=== PATIENT | female | born 1965 | race Caucasian/White ===

== ENCOUNTER 2017-04-17 17:21 | Observation (INO) | payer OTHER ==
[~2017-04-17] VITALS: Ht 160 cm; Wt 118.0 kg
[~2017-04-17 17:21] MED LIST: CETI10TA10 PO; FLUT0.15 NAE; HYOS1TAB PO; INSU3INJ3 SQ; IPRA1AER2 INH; IPRASOL4 INH; LOSA1TAB38 PO; OMEP40CA41 PO; PLN25 PO
[2017-04-17] MEDS ORDERED: SODIUM CHLORIDE 0.9% 1000ML 1,000 ML IV STA (17:55)
[2017-04-17] MEDS ORDERED: ASPIRIN 81 MG CHEW PO STA (17:55)
[2017-04-17] MEDS ORDERED: GLCSR/500 PO (17:56)
[2017-04-17] MEDS ORDERED: INSU1INJ41 SQ (17:56)
[2017-04-17] MEDS ORDERED: NITROGLYCERIN 0.4 MG SL PER TAB CHARGE SL PRN ×2 (18:00→22:45)
--- NOTE | 2017-04-17 18:26 | DIAGNOSTIC IMAGING REPORT ---
CHEST ONE VIEW PORTABLE CLINICAL HISTORY: Chest pain. COMPARISON STUDY: Chest radiograph May 24, 2016. FINDINGS: Lung volumes are normal. No pneumothorax or pleural effusion is present. There is no consolidation to suggest pneumonia. Cardiac size is normal. There is no evidence of pulmonary edema. IMPRESSION: No acute cardiopulmonary findings. Electronically signed by: Brent Higgins M.D. 04/17/2017 6:25 PM Dictated Date/Time: 04/17/2017 6:24 PM
[2017-04-17 18:50] LABS: BASO % 0.4 %; BASO ABS # 0.04 K/uL (0-0.2); COMPLETE YES; HEMATOCRIT 39.5 % (37-47); IG% 0.5 %; LYMPH % 37.7 %; LYMPH ABS # 4.13 K/uL (1.2-3.4); MEAN CELL VOLUME 88.2 fL (80-100); MEAN CORPUSCULAR HEMOGLOBIN 30.1 pg (25-34); MEAN CORPUSCULAR HGB CONC 34.2 g/dl (32-36); MEAN PLATELET VOLUME 9.4 fL (7.4-10.4); MONO % 6.1 %; NEUT % 51.3 %; PLATELET COUNT 362 K/uL (130-400); RED BLOOD COUNT 4.48 M/uL (4.2-5.4); WHITE BLOOD COUNT 10.96 K/uL (4.8-10.8)
[2017-04-17 19:29] LABS: ALKALINE PHOSPHATASE 114 U/L (45-117); ALT/SGPT 48 U/L (12-78); BLOOD UREA NITROGEN 14 mg/dl (7-18); CALCIUM 9.3 mg/dl (8.5-10.1); CARBON DIOXIDE 26 mmol/L (21-32); CHLORIDE 108 mmol/L (98-107); CREATININE 0.85 mg/dl (0.60-1.20); GLUCOSE 102 mg/dl (70-99); SODIUM 139 mmol/L (136-145)
[2017-04-17] MEDS ORDERED: NITROGLYCERIN OINT 2% 1GM PACKET EXT ONE (20:30)
[2017-04-17] MEDS ORDERED: HYDROmorphone INJ 0.5 MG/0.5 ML SYR IV ONE (21:12)
[2017-04-17] MEDS ORDERED: ONDANSETRON INJ 2 MG/ML 2 ML VIAL IV PRN (21:15)
[2017-04-17] MEDS ORDERED: TRAMADOL HCL 50 MG TAB PO PRN (21:15)
[2017-04-17] MEDS ORDERED: HYDROmorphone INJ 0.5 MG/0.5 ML SYR IV PRN (21:15)
[2017-04-17] MEDS: SODIUM CHLORIDE 0.9% 1000ML 1,000 ML IV SCH (22:41)
[2017-04-17] MEDS ORDERED: ACETAMINOPHEN 325 MG TAB PO PRN (22:45)
[2017-04-17] MEDS ORDERED: GLUCOSE 10 TABS/TUBE PO PRN (22:45)
[2017-04-17] MEDS ORDERED: GLUCOSE 40% GEL 15 GM TUBE PO PRN (22:45)
[2017-04-17] MEDS ORDERED: IV FLUIDS COMPLETED PRN (22:45)
[2017-04-17] MEDS ORDERED: DEXTROSE 50% 50 ML SYR IV PRN (22:45)
[2017-04-17] MEDS ORDERED: GLUCAGON FOR INJ 1 MG VIAL SQ PRN (22:45)
[2017-04-17] MEDS ORDERED: LORAZEPAM 2 MG/ML 1 ML VIAL IV PRN (22:45)
[2017-04-17 22:53] LABS: AST/SGOT 19 U/L (15-37); MAGNESIUM 1.9 mg/dl (1.8-2.4)
[2017-04-17 23:10] LABS: PREG INTERNAL NEGATIVE QC NEG CLEAR BACKGROUND; PREG INTERNAL POSITIVE QC POS CONTROL LINE
[2017-04-17 23:32] VITALS: BP 111/68; PULSE 79; TEMP 36.5; O2SAT 94; Ht 160 cm; Wt 118.0 kg
[2017-04-17 23:59] VITALS: O2SAT 94
[2017-04-18 03:10] VITALS: BP 92/57; PULSE 72; TEMP 36.9; O2SAT 92
[2017-04-18 03:20] LABS: BASO % 0.5 %; BASO ABS # 0.05 K/uL (0-0.2); COMPLETE YES; EOS % 4.3 %; IG% 0.7 %; LYMPH % 33.9 %; LYMPH ABS # 3.13 K/uL (1.2-3.4); MEAN CELL VOLUME 87.6 fL (80-100); MEAN CORPUSCULAR HEMOGLOBIN 29.1 pg (25-34); MEAN CORPUSCULAR HGB CONC 33.2 g/dl (32-36); MEAN PLATELET VOLUME 8.6 fL (7.4-10.4); MONO % 6.1 %; NEUT % 54.5 %; PLATELET COUNT 284 K/uL (130-400); RED BLOOD COUNT 3.88 M/uL (4.2-5.4); WHITE BLOOD COUNT 9.22 K/uL (4.8-10.8)
[2017-04-18 03:33] LABS: INR 0.9 (0.9-1.1)
[2017-04-18 03:38] LABS: BLOOD UREA NITROGEN 14 mg/dl (7-18); BUN/CREATININE RATIO 16.8 (10-20); CALCIUM 8.5 mg/dl (8.5-10.1); CARBON DIOXIDE 28 mmol/L (21-32); CHLORIDE 109 mmol/L (98-107); CREATININE 0.83 mg/dl (0.60-1.20); GLUCOSE 175 mg/dl (70-99); POTASSIUM 4.2 mmol/L (3.5-5.1); SODIUM 140 mmol/L (136-145)
[2017-04-18 03:43] LABS: CHOLESTEROL 138 mg/dl (0-200); CHOLESTEROL/HDL RATIO 4.5; HDL CHOLESTEROL 31 mg/dl; LDL CHOLESTEROL CALCULATED 79 mg/dl; TRIGLYCERIDES 138 mg/dl (0-150); VERY LOW DENSITY LIPOPROT CALC 28 mg/dl
[2017-04-18 04:00] VITALS: O2SAT 94
[2017-04-18 05:56] LABS: ESTIMATED AVERAGE GLUCOSE 157 mg/dl; HA1C FLAG Normal (Normal)
[2017-04-18] MEDS: INSULIN ASPART 100 UNITS/ML 3 ML PEN SC SCH ×2 (07:00→11:00)
[2017-04-18] MEDS ORDERED: ENOXAPARIN 40 MG/0.4 ML SYR SC SCH (07:00)
[2017-04-18 07:58] VITALS: BP_SYST 108; BP_SYST 124; BP_DIAS 66; BP_DIAS 69; PULSE 73; TEMP 36.9; O2SAT 95
[2017-04-18] MEDS ORDERED: PANTOprazole SOD 40 MG TAB PO SCH (09:00)
[2017-04-18] MEDS ORDERED: LOSARTAN POTASSIUM 50 MG TAB PO SCH (09:00)
[2017-04-18] MEDS ORDERED: ASPIRIN 325 MG ECTAB PO SCH (09:00)
[2017-04-18] MEDS ORDERED: CETIRIZINE HCL 10 MG TAB PO SCH (09:00)
[2017-04-18] MEDS ORDERED: FELODIPINE 2.5 MG TABCR PO SCH (09:00)
[2017-04-18] MEDS ORDERED: INSULIN GLARGINE SOLOSTAR 100 UNITS/ML 3 ML PEN SC SCH (09:00)
--- NOTE | 2017-04-18 10:04 | HISTORY & PHYSICAL EXAMINATION ---
DATE OF ADMISSION: 04/17/2017 PRIMARY CARE PHYSICIAN: Willy Franklin MD CHIEF COMPLAINT: Chest pain. HISTORY OF PRESENT ILLNESS: History obtained from patient and records. Medical history significant for hypertension, DM2 insulin requiring, obesity. Recent confinement last November 2010 for asthma exacerbation. Two days history of left-sided chest pain, achy with some sob and radiation to the neck and L shoulder, nausea. Patient also felt sweaty. Intermittent symptoms. Admits to some stress at work more than usual. Some relief with nitroglycerin. MEDICAL HISTORY: As above. SURGERIES: Gynecologic procedures, tonsillectomy, orthopedic procedures, cholecystostomy. HOME MEDICATIONS: Include Zyrtec, felodipine, insulin, Cozaar, metformin, Prilosec. ALLERGIES: CODEINE, DOXYCYCLINE, OXYCODONE, TETRACYCLINE, MORPHINE. FAMILY HISTORY: Breast cancer, heart disease. PERSONAL AND SOCIAL HISTORY: Past tobacco abuse. 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 REVIEW OF SYSTEMS: As per HPI, all other ROS negative. PHYSICAL EXAMINATION: VITAL SIGNS: Blood pressure was noted to be 111/68, pulse rate 79, RR 18, temperature 36.5, sats 94 on room air. GENERAL: Noted to be slightly anxious, obese, no respiratory distress. SKIN: Normal color. HEENT: [place] palpebral conjunctivae, dry mucosa. NECK: Short neck. LUNGS: Decreased breath sounds. HEART: Regular rate and rhythm. No anterior chest wall tenderness. ABDOMEN: Some distension, nontender. EXTREMITIES: Minimal LE edema. No tenderness. NEUROLOGIC: No gross focality. LABORATORY DATA: Hemoglobin was noted to be 13.5, hematocrit 39.5, white cell count 10.9, platelets 362. Sodium noted to be 139, potassium 4, chloride 108, CO2 26, BUN 40, creatinine 0.8, glucose 102. Troponin normal. EKG as per my interpretation : normal sinus rhythm, no ischemia. IMAGING DATA: chest x-ray, no acute cardiopulmonary findings. ASSESSMENT: 1. Chest pain rule out acute coronary syndrome may be anxiety induced. 2. Hypertension, stable. 3. DMtype 2, suboptimal control as of recent A1c of 8.1 last November 2016. PLAN: Observation PCU ASA for CAD prevention until ACS ruled out stress echo in AM if morning troponin normal. Psych consult, anxiety. ISS BG goal 140-180. px due for HgA1c recheck. DVT prophylaxis, Lovenox subQ. Full code. MTDD
--- NOTE | 2017-04-18 10:47 | Progress Note ---
Medicine Progress Note Date & Time of Visit: Apr 18, 2017 at 10:32. (Delmi Cyr, P.A.-C.) Subjective Pt doing well today. Resting comfortably on exam. States that chest pain is gone but that she has been experiencing a headache overnight. Denies lightheadedness, CP, SOB, n/v, MSK pain. (Delmi Cyr, P.A.-C.) Objective Last 8 Hrs Date Time Temp Pulse Resp B/P (MAP) Pulse Ox O2 Delivery O2 Flow Rate FiO2 04/18/17 08:00 Room Air 04/18/17 07:58 36.9 73 16 108/69 (82) 95 04/18/17 04:00 94 Room Air 04/18/17 03:10 36.9 72 17 92/57 (69) 92 Room Air Physical Exam: General Appearance: WD/WN, no apparent distress. Obese. Head: normocephalic, atraumatic Eyes: normal inspection, PERRL ENT: hearing grossly normal, pharynx normal Neck: supple, no JVD, no adenopathy Respiratory/Chest: lungs clear to auscultation. No wheezes, rales or rhonci. No respiratory distress or accessory muscle use Cardiovascular: regular rate, rhythm, no murmur, normal peripheral pulses Abdomen/GI: protuberant, normal bowel sounds, soft, non-tender to palpation Extremities/Musculoskelatal: normal inspection, no calf tenderness, normal capillary refill, no pedal edema Neurologic/Psych: alert, normal mood/affect, oriented x 3 Skin: normal color, warm/dry Laboratory Results: Last 24 Hours Test 04/17/17 18:19 04/17/17 18:40 04/17/17 18:44 04/17/17 22:15 Bedside Glucose 100 mg/dl White Blood Count 10.96 K/uL Red Blood Count 4.48 M/uL Hemoglobin 13.5 g/dL Hematocrit 39.5 % Mean Corpuscular Volume 88.2 fL Mean Corpuscular Hemoglobin 30.1 pg Mean Corpuscular Hemoglobin Concent 34.2 g/dl Platelet Count 362 K/uL Mean Platelet Volume 9.4 fL Neutrophils (%) (Auto) 51.3 % Lymphocytes (%) (Auto) 37.7 % Monocytes (%) (Auto) 6.1 % Eosinophils (%) (Auto) 4.0 % Basophils (%) (Auto) 0.4 % Neutrophils # (Auto) 5.62 K/uL Lymphocytes # (Auto) 4.13 K/uL Monocytes # (Auto) 0.67 K/uL Eosinophils # (Auto) 0.44 K/uL Basophils # (Auto) 0.04 K/uL RDW Standard Deviation 44.1 fL RDW Coefficient of Variation 13.6 % Immature Granulocyte % (Auto) 0.5 % Immature Granulocyte # (Auto) 0.06 K/uL Sodium Level 139 mmol/L Potassium Level mmol/L 4.0 mmol/L Chloride Level 108 mmol/L Carbon Dioxide Level 26 mmol/L Anion Gap 5.0 mmol/L Blood Urea Nitrogen 14 mg/dl Creatinine 0.85 mg/dl Est Creatinine Clear Calc Drug Dose 99.4 ml/min Estimated GFR () 93.3 Estimated GFR (Non- 80.5 BUN/Creatinine Ratio 16.0 Random Glucose 102 mg/dl Estimated Average Glucose 157 mg/dl Hemoglobin A1c 7.1 % Calcium Level 9.3 mg/dl Total Bilirubin 0.3 mg/dl Direct Bilirubin mg/dl < 0.1 mg/dl Aspartate Amino Transf (AST/SGOT) U/L 19 U/L Alanine Aminotransferase (ALT/SGPT) 48 U/L Alkaline Phosphatase 114 U/L Total Protein 8.0 gm/dl Albumin 3.7 gm/dl Lipase 207 U/L Human Chorionic Gonadotropin, Qual NEG Bedside Troponin I < 0.030 ng/ml Magnesium Level 1.9 mg/dl Thyroid Stimulating Hormone (TSH) 7.650 uIu/ml Free Thyroxine 1.06 ng/dl Test 04/18/17 00:12 04/18/17 03:00 04/18/17 06:42 Bedside Glucose 192 mg/dl 91 mg/dl White Blood Count 9.22 K/uL Red Blood Count 3.88 M/uL Hemoglobin 11.3 g/dL Hematocrit 34.0 % Mean Corpuscular Volume 87.6 fL Mean Corpuscular Hemoglobin 29.1 pg Mean Corpuscular Hemoglobin Concent 33.2 g/dl Platelet Count 284 K/uL Mean Platelet Volume 8.6 fL Neutrophils (%) (Auto) 54.5 % Lymphocytes (%) (Auto) 33.9 % Monocytes (%) (Auto) 6.1 % Eosinophils (%) (Auto) 4.3 % Basophils (%) (Auto) 0.5 % Neutrophils # (Auto) 5.02 K/uL Lymphocytes # (Auto) 3.13 K/uL Monocytes # (Auto) 0.56 K/uL Eosinophils # (Auto) 0.40 K/uL Basophils # (Auto) 0.05 K/uL RDW Standard Deviation 43.9 fL RDW Coefficient of Variation 13.7 % Immature Granulocyte % (Auto) 0.7 % Immature Granulocyte # (Auto) 0.06 K/uL Prothrombin Time 10.0 SECONDS Prothromb Time International Ratio 0.9 Sodium Level 140 mmol/L Potassium Level 4.2 mmol/L Chloride Level 109 mmol/L Carbon Dioxide Level 28 mmol/L Anion Gap 3.0 mmol/L Blood Urea Nitrogen 14 mg/dl Creatinine 0.83 mg/dl Est Creatinine Clear Calc Drug Dose 101.8 ml/min Estimated GFR () 96.0 Estimated GFR (Non- 82.8 BUN/Creatinine Ratio 16.8 Random Glucose 175 mg/dl Calcium Level 8.5 mg/dl Troponin I < 0.015 ng/ml Triglycerides Level 138 mg/dl Cholesterol Level 138 mg/dl HDL Cholesterol 31 mg/dl LDL Cholesterol, Calculated 79 mg/dl VLDL Cholesterol, Calculated 28 mg/dl Cholesterol/HDL Ratio 4.5 Diagnostic Imaging: CXR: wnl ECG: Poor R wave progression. Anterior OR vs lead placement vs LVH. Repeat ECG with NSR. (Delmi Cyr, P.A.-C.) Assessment & Plan Pt is a 51yo F with PMH of DM II, HTN and anxiety who presents with chest pain x 2 days relieved by nitro. Chest pain: -R/o ACS; risk factors include DM II, HTN, obesity -Troponins negative x 2 -EKG:Poor R wave progression. Anterior OR vs lead placement vs. LVH. Repeat ECG wnl. -CXR: normal -Check stress test results Headache: -Likely 2/2 nitro given yesterday -Tylenol PRN and encouraged fluid intake after stress test HTN: -Normotensive at 108/69. -Continue home meds DM II: -Home meds held. SSI while in-patient -Last hgb a1c of 8.1 in 12/09 WILLIE: -Hgb decreased since yesterday but is likely 2/2 dilution from IVF -Encourage a diet high in iron Anxiety: -Psych consult pending -Per psych nurse, pt has been experiencing stress 2/2 work. Has been seeing a therapist and has taken celexa, ativan and ambien in the past. DVT Ppx: Lovenox Code status: FULL PCP: Dr. Franklin Dispo: Pending stress test Current Inpatient Medications: Current Inpatient Medications Medications (Trade) Dose Ordered Sig/Per Route Start Time Stop Time Status Last Admin Dose Admin Tramadol HCl (Ultram Tab) 25 mg Q6H PRN PO 04/17/17 21:15 05/17/17 21:14 Hydromorphone HCl (Dilaudid Inj) 0.5 mg Q3H PRN IV 04/17/17 21:15 05/01/17 21:14 Ondansetron HCl (Zofran Inj) 4 mg Q6H PRN IV 04/17/17 21:15 05/17/17 21:14 Miscellaneous (Iv Fluids Completed) 1 ea PRN PRN N/A 04/17/17 22:45 04/17/18 22:44 Enoxaparin Sodium (Lovenox Inj) 40 mg Q24H SC 04/18/17 07:00 05/18/17 06:59 04/18/17 06:02 40 MG Sodium Chloride 1,000 ml @ 50 mls/hr Q20H IV 04/17/17 22:41 05/17/17 22:40 04/17/17 22:41 50 MLS/HR Acetaminophen (Tylenol Tab) 650 mg Q4H PRN PO 04/17/17 22:45 05/17/17 22:44 Nitroglycerin (Nitrostat Tab) 0.4 mg UD PRN SL 04/17/17 22:45 05/17/17 22:44 Insulin Aspart (novoLOG ASPART) SLIDING SCALE If C... ACHS SC 04/18/17 07:00 05/18/17 06:59 Glucose (Glucose 40% Gel) 15-30 GRAMS 15 GRAMS... UD PRN PO 04/17/17 22:45 05/17/17 22:44 Glucose (Glucose Chew Tab) 4-8 Tablets 4 Tabl... UD PRN PO 04/17/17 22:45 05/17/17 22:44 Dextrose (Dextrose 50% 50ML Syringe) 25-50ML OF 50% DW IV FOR... UD PRN IV 04/17/17 22:45 05/17/17 22:44 Glucagon (Glucagon Inj) 1 mg UD PRN SQ 04/17/17 22:45 05/17/17 22:44 Cetirizine HCl (zyrTEC TAB) 10 mg DAILY PO 04/18/17 09:00 05/18/17 08:59 04/18/17 08:23 10 MG Felodipine ([place] Tabcr) 2.5 mg DAILY PO 04/18/17 09:00 05/18/17 08:59 04/18/17 08:23 2.5 MG Losartan Potassium (coZAAR TAB) 100 mg DAILY PO 04/18/17 09:00 05/18/17 08:59 04/18/17 08:24 100 MG Pantoprazole Sodium (Protonix Tab) 40 mg DAILY PO 04/18/17 09:00 05/18/17 08:59 04/18/17 08:23 40 MG Aspirin (Ecotrin Tab) 325 mg QAM PO 04/18/17 09:00 05/18/17 08:59 04/18/17 08:23 325 MG Lorazepam (Ativan Inj) 0.5 mg Q4H PRN IV 04/17/17 22:45 05/17/17 22:44 (Delmi Cyr ., P.A.-C.) ATTENDING ADDENDUM care coordinated with TONY Cyr please refer to her notes for full details, I agree with her notes patient seen and examined, records reviewed by myself as well on exam, patient seen resting in bed, comfortable states left sided chest pain has resolved does report intermittent epigastric discomfort but no hematemesis, poor appetite , weight loss no other symptoms VS noted and reviewed oriented x 3, not in distress, speaks in sentences with no effort nor accessory muscle use normal rate, regular rhythm, no murmurs clear breath sounds bilaterally non distended, soft, nontender no bipedal edema, erythema, warmth no neuro deficits troponin negative EKG no signs of acute ischemia/infarct Stress Echo: negative ASSESSMENT/PLAN> CHEST PAIN, RESOLVED ACUTE CORONARY SYNDROME RULED OUT POSSIBLE SECONDARY TO GERD/GASTRITIS, STRESS -- Prilosec changed to Protonix Aspirin 81mg po daily added ANXIETY -- outpatient Psych follow up other diagnoses and plan of care as per TONY Cyr's notes Jose Gonzalez MD (Jose Gonzalez MD)
[2017-04-18 11:33] VITALS: BP 115/60; PULSE 77; TEMP 36.9; O2SAT 95
[2017-04-18] MEDS: SODIUM CHLORIDE 0.9% 1000ML 1,000 ML IV SCH (11:58)
--- NOTE | 2017-04-18 12:06 | Discharge Summary ---
Discharge Summary Date of Service Apr 18, 2017. Discharge Summary Admission Date: Apr 17, 2017 at 22:28 Discharge Date: Apr 18, 2017 Discharge Disposition: Home Principal Diagnosis: Non-cardiac chest pain Secondary Diagnoses/Problems: HTN; DM II; Anemia; Anxiety Procedures: Stress test negative per verbal report from Dr. Hooker. Pending Studies/Follow-Up: Please refer to hospital course below. Medication Reconciliation New Medications: Aspirin (Aspirin Chewable) 81 Mg Chew 81 MG PO DAILY for 30 Days, #30 TAB Pantoprazole (Protonix) 40 Mg Tab 40 MG PO DAILY for 30 Days, #30 TAB 2 Refills at least 30 minutes before breakfast or first meal of the day Continued Medications: Cetirizine Hcl (Zyrtec) 10 Mg Tab 10 MG PO DAILY, TAB Felodipine (Felodipine ER) 2.5 Mg Tabcr 2.5 MG PO DAILY, #30 Insulin Glargine-Lixisenatide (Soliqua 100/33 100-33 Unt-Mcg/ml) 1 Inj Inj 18 UNITS SQ QAM Losartan Potassium (Cozaar) 100 Mg Tab 100 MG PO DAILY, TAB Metformin HCl (Metformin HCl ER) 500 Mg Tabcr 2000 MG PO QAM USES X4 500MG TABS FOR 2,000MG DOSE Discontinued Medications: Omeprazole (Prilosec) 40 Mg Cap 40 MG PO DAILY, CAP Admission Information HPI (per Admitting provider): Medical history significant for hypertension, diabetes type 2 insulin requiring , obesity, recent confinement last under gynecology service last March, recent confinement under orthopedic service, recent confinement last November 2010 for asthma exacerbation, few days history of left-sided chest pain, achy and radiation to the neck, nausea and the patient also felt sweaty, intermittent symptoms. Admits to some stress at work more than usual, some relief with nitroglycerin. Physical Exam (per Admitting): PHYSICAL EXAMINATION: VITAL SIGNS: Blood pressure was noted to be 111/68, pulse rate 79, RR 18, temperature 36.5, sats 94 on room air. GENERAL: Noted to be slightly anxious, obese, no respiratory distress. SKIN: Normal color. HEENT: [place] palpebral conjunctivae, dry mucosa. NECK: Short neck. LUNGS: Decreased breath sounds. HEART: Regular rate and rhythm. No anterior chest wall tenderness. ABDOMEN: Some distension, nontender. EXTREMITIES: Minimal edema. No tenderness. NEUROLOGIC: No gross focality. Hospital Course Pt is a 51yo F with PMH of DM II, HTN and anxiety who presents with chest pain x 2 days relieved by nitro. Admits to increased stress level recently due to work environment. Chest pain work up included negative troponins, normal CXR and admitting ECG "Poor R wave progression. Anterior IA vs lead placement vs. LVH." Repeat ECG wnl. Stress test today with normal, without inducible ischemia. Patient started on baby aspirin for primary prevention due to other cardiac risk factors. Omeprazole changed to Protonix for possible component of GERD or Gastritis/Peptic Ulcer Disease. Dietary modification advised. May need GI referral if symptoms persist. Also Has a hx of anxiety and has been seeing a therapist with some improvement. Takes ativan PRN. Referred to a psychiatrist out-patient for follow-up. Hg 11.3, monitor. Patient also with history of HTN, DM II. Home meds continued at discharge with no changes. Hgb a1c checked () at 7.1. Total time spent on discharge = 35 minutes. This includes examination of the patient, discharge planning, medication reconciliation, and communication with other providers. Discharge Instructions Discharge Instructions Date of Service Apr 18, 2017. Admission Reason for Admission: Chest Pain Discharge Discharge Diagnosis / Problem: Non-cardiac chest pain Discharge Goals Goal(s): Decrease discomfort, Improve function Activity Recommendations Activity Limitations: resume your previous activity . Instructions / Follow-Up Instructions / Follow-Up You were admitted for chest pain. You underwent a cardiac stress test, which was normal. Your chest pain is likely secondary to stress/anxiety. Please start taking aspirin 81mg daily. This can be obtained over the counter. Continue your other medications as prescribed. The psychiatric nurse liaison spoke with you about following-up at [facility] for stress/anxiety management. Please make appointment. Your follow-up appointment with Dr. Montilla (covering for Dr. Franklin) is April 21, at 11:05am. Current Hospital Diet Patient's current hospital diet: Diabetes Type 2 Diet Discharge Diet Recommended Diet: AHA Diet (Heart Healthy), Diabetes Type 2 Diet Procedures Procedures Performed: Cardiac stress test-normal Pending Studies Studies pending at discharge: no Laboratory Results Hemoglobin A1c Test 04/17/17 18:40 Range/Units Estimated Average Glucose 157 mg/dl Hemoglobin A1c 7.1 H 4.5-5.6 % Lipid Panel Test 04/18/17 03:00 Range/Units Triglycerides Level 138 0-150 mg/dl Cholesterol Level 138 0-200 mg/dl HDL Cholesterol 31 mg/dl Cholesterol/HDL Ratio 4.5 LDL Cholesterol, Calculated 79 mg/dl Work Instructions Return To Work: 2 days. Medical Emergencies . Who to Call and When: Medical Emergencies: If at any time you feel your situation is an emergency, please call 911 immediately. . Non-Emergent Contact Non-Emergency issues call your: Primary Care Provider . Past History Medical & Surgical History: (1) DM II (diabetes mellitus, type II), controlled (2) Anxiety (3) HTN (hypertension) (4) GERD (gastroesophageal reflux disease) (5) Iron (Fe) deficiency anemia . "Provider Documentation" section prepared by Delmi Cyr. . VTE Core Measure Inpt VTE Proph given/why not?: Enoxaparin (Lovenox)SQ Additional Copies To Willy Franklin M.D.; Lars Montilla M.D.(SWATI)
[2017-04-18] MEDS ORDERED: ASPCH81X PO (12:43)
--- NOTE | 2017-04-18 12:55 | Discharge Instructions ---
Discharge Instructions Date of Service Apr 18, 2017. Admission Reason for Admission: Chest Pain Discharge Discharge Diagnosis / Problem: Non-cardiac chest pain Discharge Goals Goal(s): Decrease discomfort, Improve function Activity Recommendations Activity Limitations: resume your previous activity . Instructions / Follow-Up Instructions / Follow-Up You were admitted for chest pain. You underwent a cardiac stress test, which was normal. Your chest pain is likely secondary to stress/anxiety. Please start taking aspirin 81mg daily. This can be obtained over the counter. Continue your other medications as prescribed. The psychiatric nurse liaison spoke with you about following-up at [facility] for stress/anxiety management. Please make appointment. Your follow-up appointment with Dr. Montilla (covering for Dr. Franklin) is April 21, at 11:05am. Current Hospital Diet Patient's current hospital diet: Diabetes Type 2 Diet Discharge Diet Recommended Diet: AHA Diet (Heart Healthy), Diabetes Type 2 Diet Procedures Procedures Performed: Cardiac stress test-normal Pending Studies Studies pending at discharge: no Laboratory Results Hemoglobin A1c Test 04/17/17 18:40 Range/Units Estimated Average Glucose 157 mg/dl Hemoglobin A1c 7.1 H 4.5-5.6 % Lipid Panel Test 04/18/17 03:00 Range/Units Triglycerides Level 138 0-150 mg/dl Cholesterol Level 138 0-200 mg/dl HDL Cholesterol 31 mg/dl Cholesterol/HDL Ratio 4.5 LDL Cholesterol, Calculated 79 mg/dl Work Instructions Return To Work: 2 days Medical Emergencies . Who to Call and When: Medical Emergencies: If at any time you feel your situation is an emergency, please call 911 immediately. . Non-Emergent Contact Non-Emergency issues call your: Primary Care Provider . Past History Medical & Surgical History: (1) DM II (diabetes mellitus, type II), controlled (2) Anxiety (3) HTN (hypertension) (4) GERD (gastroesophageal reflux disease) (5) Iron (Fe) deficiency anemia . "Provider Documentation" section prepared by Delmi Cyr. . VTE Core Measure Inpt VTE Proph given/why not?: Enoxaparin (Lovenox)SQ
[2017-04-18 13:03] VITALS: BP 115/60; PULSE 77; TEMP 36.9; O2SAT 95
[2017-04-18] MEDS ORDERED: PANT1TAB48 PO (13:36)
--- NOTE | 2017-04-18 17:01 | EXERCISE STRESS ECHO ---
*NOTICE TO RECEIVING LIBERTARIAN AGENCY This information is strictly Confidential and protected under [place] law. [place] law prohibits you from making any further disclosure of this information unless further disclosure is expressly permitted by the written consent of the person to whom it pertains or is authorized by law. A general authorization for the release of medical or other information is not sufficient for this purpose. Hospital accepts no responsibility if the information is made available to any other person, INCLUDING THE PATIENT. Interpretation Summary * The stress echocardiogram is negative for inducible ischemia. * Exercise capacity is average. * _ workload achieved. * Normal resting wall motion and no stress-induced wall motion abnormality. * The stress ECG response was normal Procedure Details * ECHOEX, CPT #98019 * ECHO COLOR FLOW, CPT #09891 * ECHO DOPPLER, CPT #84241 Left Ventricle * The left ventricle is normal in size. * There is mild concentric left ventricular hypertrophy. * Ejection Fraction = 55-60%. * Left ventricular systolic function is normal. * The left ventricular wall motion is normal at rest. * The left ventricular ejection fraction increases normally with stress. The left ventricular end-systolic cavity size reduces post-stress (normal response). The left ventricular wall motion with stress is normal. Right Ventricle * The right ventricle is normal in size and function. Atria * The left atrial size is normal. * Right atrial size is normal. * No ASD detected; PFO is not assessed. Mitral Valve * The mitral valve anatomy is normal. * There is no mitral valve stenosis. * Significant mitral regurgitation is absent. Tricuspid Valve * The tricuspid valve anatomy is normal. * There is no tricuspid stenosis. * Significant tricuspid regurgitation is absent. Aortic Valve * The aortic valve is trileaflet. * Aortic stenosis is absent. * There is no significant aortic regurgitation. Pulmonic Valve * The pulmonary valve is not well seen, but the Doppler examination is normal without significant regurgitation or stenosis. Great Vessels * The aortic root and proximal ascending aorta are normal sized. Pericardium * There is no pericardial effusion. Stress Parameters * Normal baseline electrocardiogram. * Stress ECG: No ST changes. No arrhythmias. * The stress portion of this study was personally supervised by the undersigned interpreting physician. * Rest heart rate was '75' BPM. * Rest blood pressure was '133/78' * Maximum heart rate achieved was 148 bpm. * Maximum heart rate was 86 % of maximum age-predicted heart rate. * Maximum blood pressure was '184/92' * Total exercise time was '6:01' * Maximum exercise MET level achieved was '7.0' METS * Maximum treadmill speed was '2.5' miles per hour. * Maximum treadmill elevation was '12'% grade. * Exercise was terminated due to 'fatigue after achieving target heart rate' * Normal blood pressure response to exercise. MMode 2D Measurements and Calculations IVSd 0.89 cm IVSs 1.3 cm LVIDd 4.9 cm LVIDs 3.3 cm LVPWd 0.90 cm LVPWs 1.2 cm IVS/LVPW 0.98 FS 32.2 % EDV(Teich) 111.5 ml ESV(Teich) 44.3 ml EF(Teich) 60.3 % EDV(cubed) 115.8 ml ESV(cubed) 36.1 ml EF(cubed) 68.9 % % IVS thick 43.6 % % LVPW thick 34.3 % LV mass(C)d 150.3 grams LV mass(C)dI 69.5 grams/m\S\2 LV mass(C)s 131.9 grams LV mass(C)sI 61.0 grams/m\S\2 CO(Teich) 5.0 l/min CI(Teich) 2.3 l/min/m\S\2 SV(Teich) 67.2 ml SI(Teich) 31.1 ml/m\S\2 CO(cubed) 5.9 l/min CI(cubed) 2.7 l/min/m\S\2 SV(cubed) 79.8 ml SI(cubed) 36.9 ml/m\S\2 Ao root diam 3.7 cm Ao root area 10.9 cm\S\2 ACS 2.0 cm LA dimension 3.5 cm asc Aorta Diam 3.1 cm LA/Ao 0.95 LVAd ap4 33.3 cm\S\2 LVLd ap4 9.0 cm EDV(MOD-sp4) 103.0 ml LVAs ap4 17.0 cm\S\2 LVLs ap4 7.0 cm ESV(MOD-sp4) 35.0 ml EF(MOD-sp4) 66.0 % LVAd ap2 33.1 cm\S\2 LVLd ap2 10.0 cm EDV(MOD-sp2) 90.0 ml LVAs ap2 17.2 cm\S\2 LVLs ap2 8.0 cm ESV(MOD-sp2) 32.0 ml EF(MOD-sp2) 64.4 % CO(MOD-sp4) 5.0 l/min CI(MOD-sp4) 2.3 l/min/m\S\2 SV(MOD-sp4) 68.0 ml SI(MOD-sp4) 31.5 ml/m\S\2 CO(MOD-sp2) 4.3 l/min CI(MOD-sp2) 2.0 l/min/m\S\2 SV(MOD-sp2) 58.0 ml SI(MOD-sp2) 26.8 ml/m\S\2 Doppler Measurements and Calculations MV E max jenny 78.3 cm/sec MV A max jenny 81.8 cm/sec MV E/A 0.96 MV P1/2t max jenny 86.9 cm/sec MV P1/2t 80.4 msec MVA(P1/2t) 2.7 cm\S\2 MV dec slope 316.7 cm/sec\S\2 MV dec time 0.19 sec Ao V2 max 125.5 cm/sec Ao max PG 6.3 mmHg Ao max PG (full) 1.9 mmHg LV V1 max PG 4.4 mmHg LV V1 max 104.8 cm/sec PA V2 max 93.9 cm/sec PA max PG 3.5 mmHg PI max jenny 147.7 cm/sec PI max PG 8.7 mmHg PI dec slope 162.9 cm/sec\S\2 PI P1/2t 265.6 msec
--- NOTE | 2017-04-18 22:40 | EMERGENCY ROOM VISIT NOTE ---
ED Visit Note First contact with patient: 17:36 Chief Complaint: Chest pain. History of Present Illness: Ms. Smith is a 51 year-old white female who ambulates into the ED accompanied by a male friend complaining of chest heaviness. Historically patient reports she has a history of diabetes, hypertension and obesity. Only history does not include coronary artery disease but she reports she has 2 older siblings that have required pacemaker implantation. Patient reports a acute onset of chest heaviness that started 2 days ago. Since that time the pain has been constant but has waxed and waned in intensity. She places the majority of her discomfort in the midsternal area but does report it does spread over into the left side of the chest. She currently rates her discomfort 5/10 but does report it has been as high as 8/10 and as low as 3/10 but in the last 2 days she has not been completely pain- free. Her pain is radiating into the left side of the neck and shoulder. Approximately 1-2 hours ago she reports she was driving home from work and had an acute onset of severe sharp pain in the same area of her current discomfort which was associated with diaphoresis and nausea; this pain, the diaphoresis and nausea was transient and self resolved. She has not identified any aggravating or alleviating factors related to her symptoms. She has not taken any medications for her symptoms prior to arrival at the hospital. Associated with her symptoms she reports she has been feeling tired/fatigue, decreased appetite and generally not her normal self. Patient denies fevers, chills, skin eruptions, skin color changes, upper respiratory tract symptoms, wheezing, cough, shortness of breath, orthopnea, dependent edema, previous clots, claudication, cramping, recent surgery/ inactivity/extended travel, abdominal pain, nausea, vomiting, diarrhea, constipation, rectal bleeding, black/tarry stools, urinary symptoms, back/flank pain. Review of Systems: As noted above in history of present illness. All body systems were reviewed and found to be negative as noted above. Past Medical History: As noted above, asthma, pneumonia and status post cholecystectomy, appendectomy, section 3. Current Medications: Medications Dose Route/Sig Max Daily Dose Days Date Category Dose Instructions Metformin HCl ER (Metformin HCl) 500 Mg Tabcr 2,000 Mg PO QAM 04/17/17 Reported USES X4 500MG TABS FOR 2,000MG DOSE [place] 100/33 100-33 Unt-Mcg/ml (Insulin Glargine-Lixisenatide) 1 Inj Inj 18 Units SQ QAM 04/17/17 Reported Felodipine ER (Felodipine) 2.5 Mg Tabcr 2.5 Mg PO DAILY 05/24/16 Reported Zyrtec (Cetirizine Hcl) 10 Mg Tab 10 Mg PO DAILY 10/22/12 Reported Cozaar (Losartan Potassium) 100 Mg Tab 100 Mg PO DAILY 10/22/12 Reported Allergies to Medications: Codeine, doxycycline, oxycodone, tetracycline, morphine. Social History: Patient is currently employed; she feels safe in her home environment; she denies tobacco and alcohol use. Physical Examination: Vital Signs: Date Time Temp Pulse Resp B/P (MAP) Pulse Ox O2 Delivery O2 Flow Rate FiO2 04/17/17 21:49 87 04/17/17 21:32 88 20 131/91 95 Room Air 04/17/17 20:33 81 20 112/78 97 Room Air 04/17/17 18:46 84 20 129/84 95 Room Air 04/17/17 17:48 86 04/17/17 17:27 36.6 88 20 154/95 96 Room Air GENERAL: 51-year-old female in mild to moderate distress due to symptoms, nontoxic-appearing, afebrile and hemodynamically stable. NEUROLOGICAL: Awake, alert and oriented to person, place and time. Answering questions appropriately and following commands. Normal gait. Good hand eye coordination. SKIN: Warm, dry and pink. No soft tissue eruptions or trauma noted. HEENT: Atraumatic and normocephalic. PERRLA. Sclera white and conjunctiva pink. Oral cavity moist and pink. Pharynx is nonerythematous or edematous. Speech normal. No lymphadenopathy. Trachea midline. No jugular venous distention. No carotid bruits BACK: No tenderness over the bony spine. No CVA tenderness. THORAX: Lungs sounds are clear to auscultation and equal bilaterally with symmetrical chest wall. No wheezing, rales or rhonchi. No crepitus, tenderness , subcutaneous air or deformities noted. HEART: Regular rate and rhythm. No gallops, rubs or murmurs are appreciated. No lifts, heaves or thrills. PMI is not displaced. ABDOMEN: Obese, soft and nontender. Positive bowel sounds in all quadrants. No guarding, rigidity or organomegaly. EXTREMITIES: Moves all extremities well on command and with purpose. All distal neurovascular statuses are intact and equal bilaterally. Mild dependent edema. No calf tenderness/cords. ED Course: Patient is assessed as noted above. Laboratory Testing: Test 04/17/17 18:19 04/17/17 18:40 04/17/17 18:44 04/17/17 22:15 Range/Units Bedside Glucose 100 70-90 mg/dl White Blood Count 10.96 4.8-10.8 K/uL Red Blood Count 4.48 4.2-5.4 M/uL Hemoglobin 13.5 12.0-16.0 g/dL Hematocrit 39.5 37-47 % Mean Corpuscular Volume 88.2 80-100 fL Mean Corpuscular Hemoglobin 30.1 25-34 pg Mean Corpuscular Hemoglobin Concent 34.2 32-36 g/dl Platelet Count 362 130-400 K/uL Mean Platelet Volume 9.4 7.4-10.4 fL Neutrophils (%) (Auto) 51.3 % Lymphocytes (%) (Auto) 37.7 % Monocytes (%) (Auto) 6.1 % Eosinophils (%) (Auto) 4.0 % Basophils (%) (Auto) 0.4 % Neutrophils # (Auto) 5.62 1.4-6.5 K/uL Lymphocytes # (Auto) 4.13 1.2-3.4 K/uL Monocytes # (Auto) 0.67 0.11-0.59 K/uL Eosinophils # (Auto) 0.44 0-0.5 K/uL Basophils # (Auto) 0.04 0-0.2 K/uL RDW Standard Deviation 44.1 36.4-46.3 fL RDW Coefficient of Variation 13.6 11.5-14.5 % Immature Granulocyte % (Auto) 0.5 % Immature Granulocyte # (Auto) 0.06 0.00-0.02 K/uL Sodium Level 139 136-145 mmol/L Potassium Level 4.0 3.5-5.1 mmol/L Chloride Level 108 98-107 mmol/L Carbon Dioxide Level 26 21-32 mmol/L Anion Gap 5.0 3-11 mmol/L Blood Urea Nitrogen 14 7-18 mg/dl Creatinine 0.85 0.60-1.20 mg/dl Est Creatinine Clear Calc Drug Dose 99.4 ml/min Estimated GFR () 93.3 Estimated GFR (Non- 80.5 BUN/Creatinine Ratio 16.0 10-20 Random Glucose 102 70-99 mg/dl Estimated Average Glucose 157 mg/dl Hemoglobin A1c 7.1 4.5-5.6 % Calcium Level 9.3 8.5-10.1 mg/dl Total Bilirubin 0.3 0.2-1 mg/dl Direct Bilirubin < 0.1 0-0.2 mg/dl Aspartate Amino Transf (AST/SGOT) 19 15-37 U/L Alanine Aminotransferase (ALT/SGPT) 48 12-78 U/L Alkaline Phosphatase 114 45-117 U/L Total Protein 8.0 6.4-8.2 gm/dl Albumin 3.7 3.4-5.0 gm/dl Lipase 207 73-393 U/L Bedside Troponin I < 0.030 0-0.045 ng/ml Chest X-Ray: Was read by myself and the radiologist showing no acute infiltrates , effusions or pneumothorax. Normal heart silhouette and bony anatomy. No evidence of pulmonary edema. EKG: Was read by myself and reviewed with Dr. Grag; shows normal sinus rhythm with a ventricular rate of 84 bpm. Normal axis, intervals and complexes. No acute ST changes indicating ischemia, injury or infarction. Medical records were reviewed and no EKGs were found for comparison. Patient was hydrated with normal saline and patient received 324 mg of aspirin by mouth, nitroglycerin sublingual tablet trial and nitroglycerin ointment. Patient was reassessed multiple times during her stay in the emergency department. After patient had finished her nitroglycerin trial she reports that she was feeling much better and rated her discomfort 2/10. After returning from her chest x-ray she reports her pain is exacerbated back to a level 4/10 and 1 inch of nitroglycerin paste was placed on her chest wall. Patient's case was reviewed with Dr. Garg; we agreed on diagnostic approach , treatment, disposition and plan. Patient's case was consulted with case management and Dr. Parks, [facility] hospitalist, for medical observation/admission. Patient and were educated about today's findings. Clinical Impression: Acute chest discomfort. Decision-Making: Initially my differential diagnosis I considered acute coronary syndrome, pneumothorax, pneumonia, pulmonary embolism, musculoskeletal disorder, thoracic aneurysm and other causes. Disposition and Plan: Patient to be brought into the hospital by the [facility] hospitalist; please see their notes and orders for final disposition and plan.
== END 2017-04-18 14:10 | disposition home or self-care (01) ==
LOC: C.EDB 17:22 → C.2T 22:28 → ENRESERV 22:51
PROVIDERS: ADMIT Hospitalist; ATTEND Internal Medicine
DX: R07.89 Other chest pain (principal); I10 Essential (primary) hypertension; E11.9 Type 2 diabetes mellitus without complications; E66.9 Obesity, unspecified; J45.909 Unspecified asthma, uncomplicated; Z90.89 Acquired absence of other organs; Z90.49 Acquired absence of other specified parts of digestive tract; Z80.3 Family history of malignant neoplasm of breast; Z82.49 Family history of ischemic heart disease and other diseases of the circulatory system; Z79.4 Long term (current) use of insulin; Z87.891 Personal history of nicotine dependence; F41.9 Anxiety disorder, unspecified

== ENCOUNTER 2019-08-30 21:38 | Observation (INO) ==
[2019-08-30] MEDS ORDERED: ONDANSETRON INJ 2 MG/ML 2 ML VIAL IV STA (21:55)
[2019-08-30] MEDS ORDERED: SODIUM CHLORIDE 0.9% 1000ML 1,000 ML IV ONE (21:55)
[2019-08-30] MEDS ORDERED: FAMOTIDINE 20MG/5ML IV PUSH IV STA (21:55)
[2019-08-30] MEDS ORDERED: fentaNYL citrate 100 MCG/2 ML VIAL IV STA (22:03)
[2019-08-30 22:27] LABS: Appearance Urine Cloudy (Clear); Bacteria Urine Automated Negative (Negative); Bilirubin Urine Negative (Negative); Blood Urine 2+ (Negative); Color Urine Yellow; Glucose Urine UA Negative (Negative); Ketones Urine Trace (Negative); Leukocyte Esterase Urine 3+ (Negative); Nitrite Urine Negative (Negative); RBC Urine Automated >30 /hpf (0-4); Specific Gravity Urine 1.015 (1.000-1.030); Urobilinogen Urine Negative (Negative); WBC Urine Automated >30 /hpf (0-5)
[2019-08-30 22:30] LABS: Protein Urine Trace (Negative)
[2019-08-30 22:31] LABS: Sulfosalicylic Acid Urine Positive (Negative)
[2019-08-30 22:52] LABS: Basophils # (auto) 0.05 K/uL (0-0.2); Basophils % (auto) 0.5 %; Eosinophils # (auto) 0.19 K/uL (0-0.5); Eosinophils % (auto) 1.8 %; Hematocrit (blood only) 39.1 % (37-47); Hemoglobin 13.3 g/dL (12.0-16.0); Immature Granulocytes # (auto) 0.03 K/uL (0.00-0.02); Immature Granulocytes % (auto) 0.3 %; Lymphocytes # (auto) 1.87 K/uL (1.2-3.4); Lymphocytes % (auto) 17.8 %; Mean Corpuscular Volume 85.4 fL (80-100); Mean Platelet Volume 10.2 fL (7.4-10.4); Monocytes # (auto) 0.49 K/uL (0.11-0.59); Monocytes % (auto) 4.7 %; Neutrophils # (auto) 7.86 K/uL (1.4-6.5); Neutrophils % (auto) 74.9 %; Platelet Count 333 K/uL (130-400); RDW Coefficient of Variation 14.1 % (11.5-14.5); RDW Standard Deviation 43.4 fL (36.4-46.3); Red Blood Count 4.58 M/uL (4.2-5.4); White Blood Count 10.49 K/uL (4.8-10.8)
[2019-08-30 23:19] LABS: Alanine Aminotransferase 49 U/L (12-78); Albumin Globulin Ratio 0.9 (0.9-2); Albumin Level 3.9 gm/dl (3.4-5.0); Alkaline Phosphatase 104 U/L (45-117); BUN Creatinine Ratio 10.5 (10-20); Bilirubin,Total 0.4 mg/dl (0.2-1); Blood Urea Nitrogen 10 mg/dl (7-18); Calcium 9.8 mg/dl (8.5-10.1); Carbon Dioxide 27 mmol/L (21-32); Chloride 102 mmol/L (98-107); Est GFR (African American) 78.8; Globulin 4.5 gm/dl (2.5-4.0); Glucose 197 mg/dl (70-99); Lipase 343 U/L (73-393); Sodium 137 mmol/L (136-145); Total Protein 8.4 gm/dl (6.4-8.2); Troponin I < 0.015 ng/ml (0-0.045)
[2019-08-31 00:49] LABS: Potassium 3.1 mmol/L (3.5-5.1)
[2019-08-31] MEDS ORDERED: cefTRIAXone SODIUM 2,000 MG/70 ML BAG IV STA (01:07)
[2019-08-31] MEDS ORDERED: METOCLOPRAMIDE HCL INJ 5 MG/ML 2 ML VIAL IV STA (01:07)
[2019-08-31] MEDS ORDERED: SODIUM CHLORIDE 0.9% 1000ML 1,000 ML IV ONE (01:08)
--- NOTE | 2019-08-31 01:20 | Emergency Department Note ---
Entered by Ran Noriega acting as a scribe for History of Present Illness General Chief complaint: Abdominal Pain Stated complaint: STOMACH PAIN, NAUSEA Time Seen by Provider: 08/30/19 21:52 Source: patient History of Present Illness Onset (ago): week(s) 3 Location: head (illness) Radiation: abdomen (abdominal pain radiating to back) Pain Consistency: + other (worsening) Maximum Pain Intensity: 5 Exacerbated By: + medication (Trulicity and Topomax) Associated symptoms: + cough, + loss of appetite and + other (tiredness, diarrhea, upper abdominal pain, and indigestion ); no fever/chills The patient is a 54 year old F who presents to the Emergency Room with complaints of a worsening illness that started 3 weeks ago. The patient states that she was recently started on Trulicity due to uncontrolled blood sugar levels. She adds that she was also started on Topomax at the same time. She notes that ever since starting these medications, she has not been able to get out of bed and eat anything. She adds that she consulted her PCP who told her to cut back on her medications. She notes that cutting back did not help her symptoms. She adds that she has now developed diarrhea, upper abdominal pain, indigestion and coughing. She notes that her abdominal pain radiates to her back. She states that she saw her PCP, again, this week. She notes that her PCP found an elevated lipase level and hypokalemia. She adds that her PCP started her on Protonix for her indigestion. She denies that she is currently experiencing a fever. She states that she has not been around anybody that has been sick. She denies any recent antibiotic use or eating any suspect food. She states that she has a history of a cholecystectomy and an appendectomy. Home Medications Home Medications Medication Instructions Recorded Confirmed Type amlodipine 2.5 mg PO DAILY 06/27/19 08/30/19 History hydrochlorothiazide 25 mg PO DAILY 06/27/19 08/30/19 History losartan 100 mg PO DAILY 06/27/19 08/30/19 History pantoprazole 40 mg PO DAILYBB 06/27/19 08/30/19 History rosuvastatin 5 mg PO DAILY 06/27/19 08/30/19 History fluoxetine 20 mg PO DIRECTED 08/30/19 08/30/19 History fluoxetine 40 mg PO DIRECTED 08/30/19 08/30/19 History metformin 2,000 mg PO DAILY 08/30/19 08/30/19 History potassium chloride 10 meq PO DIRECTED 08/30/19 08/30/19 History sitagliptin [Januvia] 100 mg PO DAILY 08/30/19 08/30/19 History Allergies Allergy/AdvReac Type Severity Reaction Status Date / Time oxycodone Allergy Mild ITCH Unverified 08/30/19 23:03 codeine Allergy Unknown RASH Verified 08/30/19 23:03 doxycycline Allergy Unknown HIVES Verified 08/30/19 23:03 morphine Allergy Unknown HIVES, N/V Verified 08/30/19 23:03 tetracycline Allergy Unknown DOXYCYCLINE Verified 08/30/19 23:03 Past Med/Surg History Family History (Updated 08/31/19 @ 00:53 by Ran Nroiega) Other No significant family history Social History Preferred Language: Finnish Feels Safe at Home: Yes Smoking Status: Never smoker Review of Systems See HPI for pertinent positives & negatives. and A total of 10 systems reviewed and were otherwise negative Physical Exam Vital Signs Vital Signs - 24 hr 08/30/19 21:41 08/30/19 22:48 Temperature 36.6 C Temperature Source Oral Pulse Rate 79 Pulse Rate [Right Finger] 61 Respiratory Rate 20 20 Respiratory Effort / Characteristics Non-Labored Respiratory Depth Normal Blood Pressure 155/88 H Blood Pressure [Right Arm] 109/59 L Blood Pressure Mean 110 Blood Pressure Mean [Right Arm] 75 Blood Pressure Position Sitting Pulse Oximetry 95 97 Oxygen Delivery Method Room Air Room Air Sepsis Recent Fever Within 48 Hours No Sepsis New/Unexplained Change in Mental Status No Sepsis Action Taken by Nursing No Action Required GENERAL: Awake, alert, weak-appearing, fatigued HENT: Normocephalic, atraumatic. DMM. EYES: Normal conjunctiva. Sclera non-icteric. NECK: Supple. No nuchal rigidity. RESPIRATORY: Clear to auscultation. No wheezes. Normal respiratory effort. CARDIAC: Normal rate. Normal rhythm. Extremities warm and well perfused. GI: Soft, non-distended. No tenderness to palpation. No rebound or guarding. RECTAL: Deferred. MUSCULOSKELETAL: Atraumatic. Chest examination reveals no tenderness. LOWER EXTREMITIES: Calves are equal size bilaterally and non-tender. NEURO: Normal sensorium. No sensory or motor deficits noted. No facial droop. SKIN: Warm and dry. No rash or jaundice noted. Course Course 2157: The patient was evaluated in room B4. A complete history and physical exam was performed. 0116: I reviewed the patient's case with Dr. Dillon Cook, [facility] Hospitalist. He will evaluate the patient for further management. Administered Medications Discontinued Medications Famotidine (Pepcid 20mg Iv Push) 20 mg IV ONE STA Stop: 08/30/19 21:56 Last Admin: 08/30/19 22:43 Dose: 20 mg Documented by: [id number] Fentanyl Citrate (Fentanyl Citrate) 25 mcg IV NOW STA Stop: 08/30/19 22:04 Last Admin: 08/30/19 22:43 Dose: 25 mcg Documented by: [id number] Sodium Chloride (Nss 1000ml) 1,000 mls @ 999 mls/hr IV .Q1H1M ONE Stop: 08/30/19 22:55 Last Admin: 08/30/19 22:43 Dose: 999 mls/hr Documented by: [id number] Ondansetron HCl (Zofran) 4 mg IV NOW STA Stop: 08/30/19 21:56 Last Admin: 08/30/19 22:43 Dose: 4 mg Documented by: [id number] Medical Decision Making Differential Diagnosis Differential Diagnosis includes but is not limited to dehydration, stroke, anemia, hypoglycemia, hyponatremia, hypernatremia, urinary tract infection, pneumonia, bronchitis, sepsis, gastroenteritis, additional abdominal pathology, metabolic abnormalities and infections. Medical Records Attestation: I reviewed the patient's medical records. Home Medications Current Medication List: was personally reviewed by me Laboratory Data Attestation: I reviewed the patient's lab results. Result diagrams: 08/30/19 22:32 08/31/19 00:28 Lab Results 08/30/19 08/30/19 08/30/19 Range/Units 21:50 22:32 22:32 WBC 10.49 (4.8-10.8) K/uL RBC 4.58 (4.2-5.4) M/uL Hgb 13.3 (12.0-16.0) g/dL Hct 39.1 (37-47) % MCV 85.4 (80-100) fL MCH 29.0 (25-34) pg MCHC 34.0 (32-36) g/dL RDW Std Deviation 43.4 (36.4-46.3) fL RDW Coeff of Kathleen 14.1 (11.5-14.5) % Plt Count 333 (130-400) K/uL MPV 10.2 (7.4-10.4) fL Immature Gran % (Auto) 0.3 % Neut % (Auto) 74.9 % Lymph % (Auto) 17.8 % Carbon % (Auto) 4.7 % Eos % (Auto) 1.8 % Baso % (Auto) 0.5 % Immature Gran # (Auto) 0.03 H (0.00-0.02) K/uL Neut # (Auto) 7.86 H (1.4-6.5) K/uL Lymph # (Auto) 1.87 (1.2-3.4) K/uL Carbon # (Auto) 0.49 (0.11-0.59) K/uL Eos # (Auto) 0.19 (0-0.5) K/uL Baso # (Auto) 0.05 (0-0.2) K/uL Sodium 137 (136-145) mmol/L Potassium (3.5-5.1) mmol/L Chloride 102 (98-107) mmol/L Carbon Dioxide 27 (21-32) mmol/L Anion Gap 8.0 (3-11) BUN 10 (7-18) mg/dl Creatinine 0.96 (0.6-1.2) mg/dl Est Cr Clr Drug Dosing 82.0 ml/min Est GFR ( Amer) 78.8 Est GFR (Non-Af Amer) 68.0 BUN/Creatinine Ratio 10.5 (10-20) Glucose 197 H (70-99) mg/dl Calcium 9.8 (8.5-10.1) mg/dl Total Bilirubin 0.4 (0.2-1) mg/dl AST (15-37) U/L ALT 49 (12-78) U/L Alkaline Phosphatase 104 (45-117) U/L Troponin I < 0.015 (0-0.045) ng/ml Total Protein 8.4 H (6.4-8.2) gm/dl Albumin 3.9 (3.4-5.0) gm/dl Globulin 4.5 H (2.5-4.0) gm/dl Albumin/Globulin Ratio 0.9 (0.9-2) Lipase 343 (73-393) U/L Urine Color Yellow Urine Appearance Cloudy A (Clear) Urine pH 8.0 H (4.5-7.5) Ur Specific [place] 1.015 (1.000-1.030) Urine Protein Trace H (Negative) Urine Glucose (UA) Negative (Negative) Urine Ketones Trace H (Negative) Urine Blood 2+ H (Negative) Urine Nitrite Negative (Negative) Urine Bilirubin Negative (Negative) Urine Urobilinogen Negative (Negative) Ur Leukocyte Esterase 3+ H (Negative) Urine WBC (Auto) >30 H (0-5) /hpf Urine RBC (Auto) >30 H (0-4) /hpf U Hyaline Cast (Auto) 1-5 (0-5) /lpf U Epithel Cells (Auto) 10-20 H (0-5) /lpf Urine Bacteria (Auto) Negative (Negative) 08/31/19 Range/Units 00:28 WBC (4.8-10.8) K/uL RBC (4.2-5.4) M/uL Hgb (12.0-16.0) g/dL Hct (37-47) % MCV (80-100) fL MCH (25-34) pg MCHC (32-36) g/dL RDW Std Deviation (36.4-46.3) fL RDW Coeff of Kathleen (11.5-14.5) % Plt Count (130-400) K/uL MPV (7.4-10.4) fL Immature Gran % (Auto) % Neut % (Auto) % Lymph % (Auto) % Carbon % (Auto) % Eos % (Auto) % Baso % (Auto) % Immature Gran # (Auto) (0.00-0.02) K/uL Neut # (Auto) (1.4-6.5) K/uL Lymph # (Auto) (1.2-3.4) K/uL Carbon # (Auto) (0.11-0.59) K/uL Eos # (Auto) (0-0.5) K/uL Baso # (Auto) (0-0.2) K/uL Sodium (136-145) mmol/L Potassium 3.1 L (3.5-5.1) mmol/L Chloride (98-107) mmol/L Carbon Dioxide (21-32) mmol/L Anion Gap (3-11) BUN (7-18) mg/dl Creatinine (0.6-1.2) mg/dl Est Cr Clr Drug Dosing ml/min Est GFR ( Amer) Est GFR (Non-Af Amer) BUN/Creatinine Ratio (10-20) Glucose (70-99) mg/dl Calcium (8.5-10.1) mg/dl Total Bilirubin (0.2-1) mg/dl AST 19 (15-37) U/L ALT (12-78) U/L Alkaline Phosphatase (45-117) U/L Troponin I (0-0.045) ng/ml Total Protein (6.4-8.2) gm/dl Albumin (3.4-5.0) gm/dl Globulin (2.5-4.0) gm/dl Albumin/Globulin Ratio (0.9-2) Lipase (73-393) U/L Urine Color Urine Appearance (Clear) Urine pH (4.5-7.5) Ur Specific [place] (1.000-1.030) Urine Protein (Negative) Urine Glucose (UA) (Negative) Urine Ketones (Negative) Urine Blood (Negative) Urine Nitrite (Negative) Urine Bilirubin (Negative) Urine Urobilinogen (Negative) Ur Leukocyte Esterase (Negative) Urine WBC (Auto) (0-5) /hpf Urine RBC (Auto) (0-4) /hpf U Hyaline Cast (Auto) (0-5) /lpf U Epithel Cells (Auto) (0-5) /lpf Urine Bacteria (Auto) (Negative) Imaging Data Radiologist's Impression: Radiology results as stated below per my review and the radiologist's interpretation: CT ABDOMEN & PELVIS With Contrast: No acute intra-abdominal abnormality. Hepatic steatosis. ECG Data Attestation: I personally reviewed and interpreted this ECG as follows: Indication: + abdominal pain Rate (beats per minute): 58 Rhythm: + sinus bradycardia ECG [place]: + Normal ECG ST segments: no ST depression and no ST elevation ECG Findings: no PVCs Blood Pressure Blood Pressure Findings: Low blood pressure Blood Pressure Disposition: further management by hospitalist KIM Barth Patient is a 54-year-old with a history of diabetes, hypertension, GERD, anxiety presenting today complaining of abdominal pain with associated nausea. But this was a reaction to Trulicity and has stopped this medication. Been seeing her outpatient primary doctor. Evidently tonight reports also increased burning with urination with decreased desire to drink and states she can barely swallow her own secretions. Has epigastric pain. Cardiac abdominal work-up completed. EKG and troponin was sent in addition to basic laboratory studies. Urinalysis ordered. CT scan of the abdomen pelvis was ordered. Reports chronic diarrhea and stool samples and C. difficile are sent although I will lower suspicion she is low risk factor for this etiology. Sounds like it could be related to her Trulicity and possible pancreatitis. Attempted to obtain outside [facility] records from laboratory studies today; they show no evidence of significant hypertriglyceridemia, lipase elevation, electrolyte abnormality, or kidney dysfunction. Urinalysis here is somewhat concerning although some epithelial cells are visualized here. Given her symptoms, will treat as UTI. No significant leukocytosis is noted. No evidence of acute hepatitis or pancreatitis. No evidence of significant electrolyte abnormality or renal dysfunction. While hyperglycemia. Discussed with the patient. Patient still feels nauseous. Given additional Reglan. Additional fluid bolus given. Discussed with the patient. Not tolerating oral intake and believe observation for further hydration and symptom control is indicated. Cussed with the hospitalist. Ceftriaxone for UTI given. [place] BP. Dehydrated. Impression & Plan Acute UTI, Gastroenteritis, Dehydration Discharge Plan Visit Data Chief Complaint: Abdominal Pain Stated Complaint: STOMACH PAIN, NAUSEA ED Provider: Mickey Aguirre Discharge Problem: Acute UTI, Gastroenteritis, Dehydration Patient Disposition: Admitted As Inpatient Forms Stand Alone Forms: Call Back Authorization, [facility] Prescriptions Prescriptions: No Action amlodipine 2.5 mg tablet 2.5 mg PO DAILY RF: 0 pantoprazole 40 mg tablet,delayed release (DR/EC) 40 mg PO DAILYBB RF: 0 hydrochlorothiazide 25 mg tablet 25 mg PO DAILY RF: 0 losartan 100 mg tablet 100 mg PO DAILY RF: 0 rosuvastatin 5 mg tablet 5 mg PO DAILY RF: 0 potassium chloride 10 mEq capsule, extended release 10 meq PO DIRECTED RF: 0 metformin 500 mg tablet extended release 24 hr 2,000 mg PO DAILY RF: 0 Januvia 100 mg tablet 100 mg PO DAILY RF: 0 fluoxetine 40 mg capsule 40 mg PO DIRECTED RF: 0 fluoxetine 20 mg capsule 20 mg PO DIRECTED RF: 0 Referrals Referrals: Ginna Vincent, DO [Primary Care Provider] - The scribe's documentation has been prepared under my direction and personally reviewed by me in its entirety. I confirm that the note above accurately reflects all work, treatment, procedures, and medical decision making performed by me.
[2019-08-31] MEDS ORDERED: POTASSIUM CHLORIDE 20 MEQ TABCR PO STA ×2 (01:21→10:32)
[2019-08-31 01:34] LABS: Magnesium 1.7 mg/dl (1.8-2.4)
[2019-08-31] MEDS ORDERED: IOVERSOL 100ml IV PRN (01:40)
[2019-08-31] MEDS ORDERED: INSULIN GLARGINE SOLOSTAR 100 UNITS/ML 3 ML PEN SC STA (02:16)
--- NOTE | 2019-08-31 02:23 | History & Physical Report ---
Date of Service August 31, 2019 Assessment & Plan (1) Abdominal pain: Multifactorial : Complicated UTI, no sepsis Diarrheal illness likely secondary to Trulicity, rule out C. difficile Hypokalemia, clinical dehydration secondary to illness, home diuretic Rx hypertension, stable DM2 insulin requiring, suboptimal control as of recent outpatient hemoglobin A1c of 8.7, August 2019 anxiety/mood disorder, suboptimal as per patient, work issues contributory, patient denies suicidality history pseudotumor cerebri as per records, stable off Topamax Rx which was stopped due to lethargy OBS as per case management GMF Follow urine cultures, IV Cefepime Add Trulicity to allergy/ADR list Stool C. difficile replace electrolytes, IVF, hold home diuretic until patient euvolemic Basal insulin, ISS BG goal [id number], carb count coverage Outpatient follow-up with psychiatrist. (Patient refusing inpatient evaluation for now for suboptimal mood.) DVT prophylaxis with Lovenox subcu Full code History of Present Illness Chief Complaint: Abdominal pain, diarrhea Primary Care Provider: Ginna Vincent, History obtained from patient and records. Medical history significant for hypertension, DM2 insulin requiring, anxiety/mood disorder, history pseudotumor cerebri as per records. Recent confinement March 2017 for chest pain. ACS ruled out. 3 weeks ago patient started by PCP on weekly Trulicity shots for her diabetes mellitus. Patient has felt sick since starting new prescription. Nausea, severe indigestion symptoms. Achy upper abdominal pain going to the left side, nonbloody diarrhea, poor appetite. Feeling dizzy. Feeling tired. Patient denies chest pain, S OB. Patient seen at PCPs office on follow-up 4 days ago. Trulicity to be held. Outpatient lipase noted to be minimally elevated. Dysuria symptoms noted about 2 days ago. No fever, no chills, no hematuria. Patient went to ER for worsening symptoms. At the ER, IV ceftriaxone given for UTI. MEDICAL HISTORY: As above. SURGERIES: Gynecologic procedures, tonsillectomy, orthopedic procedures, cholecystostomy. Breast reduction FAMILY HISTORY: Breast cancer, heart disease. PERSONAL AND SOCIAL HISTORY: Past tobacco abuse. 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, managerial work Allergies Allergy/AdvReac Type Severity Reaction Status Date / Time oxycodone Allergy Mild ITCH Unverified 08/30/19 23:03 codeine Allergy Unknown RASH Verified 08/30/19 23:03 doxycycline Allergy Unknown HIVES Verified 08/30/19 23:03 morphine Allergy Unknown HIVES, N/V Verified 08/30/19 23:03 tetracycline Allergy Unknown DOXYCYCLINE Verified 08/30/19 23:03 dulaglutide [From Trulicity] AdvReac Mild diarrhea Verified 08/31/19 02:31 topiramate [From Topamax] AdvReac Mild lethargy Verified 08/31/19 02:31 Home Medications Home Medications Medication Instructions Recorded Confirmed Type amlodipine 2.5 mg PO DAILY 06/27/19 08/30/19 History hydrochlorothiazide 25 mg PO DAILY 06/27/19 08/30/19 History losartan 100 mg PO DAILY 06/27/19 08/30/19 History pantoprazole 40 mg PO DAILYBB 06/27/19 08/30/19 History rosuvastatin 5 mg PO DAILY 06/27/19 08/30/19 History fluoxetine 20 mg PO DIRECTED 08/30/19 08/30/19 History fluoxetine 40 mg PO DIRECTED 08/30/19 08/30/19 History metformin 2,000 mg PO DAILY 08/30/19 08/30/19 History potassium chloride 10 meq PO DIRECTED 08/30/19 08/30/19 History sitagliptin [Januvia] 100 mg PO DAILY 08/30/19 08/30/19 History Past Med/Surg History Family History (Updated 08/31/19 @ 00:53 by Ran Noriega) Other No significant family history Social History Preferred Language: Monegasque Communication Ability: Effective Spool Cleaner Required: No Beliefs That Will Affect Care: None Current Living Situation: Spouse Other Information That Helps Us Care for You: No Feels Safe at Home: Yes Safety Concerns: Feels Safe At This Time Smoking Status: Never smoker Second Hand Exposure: No ; Hx Alcohol Use: No Hx Substance Use: No Review of Systems Review of Systems: As per HPI, all 10 systems reviewed, depression not the best as per patient, all other ROS negative Physical Exam Physical Exam: GENERAL: Slightly uncomfortable, obese, sad, no respiratory distress SKIN: Normal color, warm HEENT: [place] palpebral conjunctivae, no ptosis, dry buccal mucosa NECK : Supple, short neck, no tenderness CHEST : CTA, no tenderness HEART : RRR, no obvious murmurs ABDOMEN: Some distention, central abdominal tenderness EXTREMITIES : Minimal LE swelling, no LE tenderness, no other conspicuous deformities noted NEUROLOGIC : Coherent, no facial asymmetry, no other gross focality Results & Data Vital Signs (Past 12 Hours) Vital Signs Temp Pulse Pulse Resp BP BP Pulse Ox 08/31/19 01:45 69 18 106/67 98 08/30/19 22:48 61 20 109/59 L 97 08/30/19 21:41 36.6 C 79 20 155/88 H 95 Laboratory Results Laboratory Results WBC 10.49 K/uL (4.8-10.8) 08/30/19 22:32 RBC 4.58 M/uL (4.2-5.4) 08/30/19 22:32 Hgb 13.3 g/dL (12.0-16.0) 08/30/19 22:32 Hct 39.1 % (37-47) 08/30/19 22:32 MCV 85.4 fL (80-100) 08/30/19 22:32 MCH 29.0 pg (25-34) 08/30/19 22:32 MCHC 34.0 g/dL (32-36) 08/30/19 22:32 RDW Std Deviation 43.4 fL (36.4-46.3) 08/30/19 22:32 RDW Coeff of Kathleen 14.1 % (11.5-14.5) 08/30/19 22:32 Plt Count 333 K/uL (130-400) 08/30/19 22:32 MPV 10.2 fL (7.4-10.4) 08/30/19 22:32 Immature Gran % (Auto) 0.3 % 08/30/19 22:32 Neut % (Auto) 74.9 % 08/30/19 22:32 Lymph % (Auto) 17.8 % 08/30/19 22:32 [place] % (Auto) 4.7 % 08/30/19 22:32 Eos % (Auto) 1.8 % 08/30/19 22:32 Baso % (Auto) 0.5 % 08/30/19 22:32 Immature Gran # (Auto) 0.03 K/uL (0.00-0.02) H 08/30/19 22:32 Neut # (Auto) 7.86 K/uL (1.4-6.5) H 08/30/19 22:32 Lymph # (Auto) 1.87 K/uL (1.2-3.4) 08/30/19 22:32 [place] # (Auto) 0.49 K/uL (0.11-0.59) 08/30/19 22:32 Eos # (Auto) 0.19 K/uL (0-0.5) 08/30/19 22:32 Baso # (Auto) 0.05 K/uL (0-0.2) 08/30/19 22:32 Sodium 137 mmol/L (136-145) 08/30/19 22:32 Potassium 3.1 mmol/L (3.5-5.1) L 08/31/19 00:28 Chloride 102 mmol/L (98-107) 08/30/19 22:32 Carbon Dioxide 27 mmol/L (21-32) 08/30/19 22:32 Anion Gap 8.0 (3-11) 08/30/19 22:32 BUN 10 mg/dl (7-18) 08/30/19 22:32 Creatinine 0.96 mg/dl (0.6-1.2) 08/30/19 22:32 Est Cr Clr Drug Dosing 82.0 ml/min 08/30/19 22:32 Est GFR ( Amer) 78.8 08/30/19 22:32 Est GFR (Non-Af Amer) 68.0 08/30/19 22:32 BUN/Creatinine Ratio 10.5 (10-20) 08/30/19 22:32 Glucose 197 mg/dl (70-99) H 08/30/19 22:32 Calcium 9.8 mg/dl (8.5-10.1) 08/30/19 22:32 Magnesium 1.7 mg/dl (1.8-2.4) L 08/31/19 00:28 Total Bilirubin 0.4 mg/dl (0.2-1) 08/30/19 22:32 AST 19 U/L (15-37) 08/31/19 00:28 ALT 49 U/L (12-78) 08/30/19 22:32 Alkaline Phosphatase 104 U/L (45-117) 08/30/19 22:32 Troponin I < 0.015 ng/ml (0-0.045) 08/30/19 22:32 Total Protein 8.4 gm/dl (6.4-8.2) H 08/30/19 22:32 Albumin 3.9 gm/dl (3.4-5.0) 08/30/19 22:32 Globulin 4.5 gm/dl (2.5-4.0) H 08/30/19 22:32 Albumin/Globulin Ratio 0.9 (0.9-2) 08/30/19 22:32 Lipase 343 U/L (73-393) 08/30/19 22:32 Urine Color Yellow 08/30/19 21:50 Urine Appearance Cloudy (Clear) A 08/30/19 21:50 Urine pH 8.0 (4.5-7.5) H 08/30/19 21:50 Ur Specific [place] 1.015 (1.000-1.030) 08/30/19 21:50 Urine Protein Trace (Negative) H 08/30/19 21:50 Urine Glucose (UA) Negative (Negative) 08/30/19 21:50 Urine Ketones Trace (Negative) H 08/30/19 21:50 Urine Blood 2+ (Negative) H 08/30/19 21:50 Urine Nitrite Negative (Negative) 08/30/19 21:50 Urine Bilirubin Negative (Negative) 08/30/19 21:50 Urine Urobilinogen Negative (Negative) 08/30/19 21:50 Ur Leukocyte Esterase 3+ (Negative) H 08/30/19 21:50 Urine WBC (Auto) >30 /hpf (0-5) H 08/30/19 21:50 Urine RBC (Auto) >30 /hpf (0-4) H 08/30/19 21:50 U Hyaline Cast (Auto) 1-5 /lpf (0-5) 08/30/19 21:50 U Epithel Cells (Auto) 10-20 /lpf (0-5) H 08/30/19 21:50 Urine Bacteria (Auto) Negative (Negative) 08/30/19 21:[address] abdomen pelvis initial read: No acute intra-abdominal abnormality. Chest x-ray as per my interpretation no congestion EKG as per my interpretation : Rate 55, sinus bradycardia, normal axis, no ischemia
[2019-08-31] MEDS ORDERED: PROMETHAZINE 12.5 MG/50.5 ML BAG IV STA (02:29)
[2019-08-31] MEDS ORDERED: TRAMADOL HCL 50 MG TABLET PO PRN (02:30)
[2019-08-31] MEDS ORDERED: KETOROLAC TROMETHAMINE 15 MG/ML VIAL IV PRN (03:49)
[2019-08-31] MEDS ORDERED: CARBOHYDRATES FOR HYPOGLYCEMIA PO PRN (03:49)
[2019-08-31] MEDS ORDERED: GLUCOSE 40% GEL 15 GM TUBE PO PRN (03:49)
[2019-08-31] MEDS ORDERED: DEXTROSE 50% 50 ML SYRINGE IV PRN (03:49)
[2019-08-31] MEDS ORDERED: FLUOXETINE HCL 20 MG CAP PO SCH (03:49)
[2019-08-31] MEDS ORDERED: ACETAMINOPHEN 325 MG TAB PO PRN (03:49)
[2019-08-31] MEDS ORDERED: GLUCOSE 10 TABS/TUBE PO PRN (03:49)
[2019-08-31] MEDS ORDERED: GLUCAGON FOR INJ 1 MG VIAL SQ PRN (03:49)
[2019-08-31] MEDS ORDERED: LORazepam 0.5 MG/1 ML VIAL IV PRN (03:49)
[2019-08-31] MEDS ORDERED: MAGNESIUM SULFATE / D5W 1 GM/100 ML BAG IV ONE (04:15)
[2019-08-31] MEDS ORDERED: POTASSIUM CHLORIDE 40 MEQ in SODIUM CHLORIDE 0.9% 1000ML 1,000 ML IV STA (04:18)
[2019-08-31] MEDS: INSULIN ASPART 100 UNITS/ML 3 ML PEN SC SCH ×5 (04:50→21:33)
[2019-08-31] MEDS ORDERED: CEFEPIME CONSULT ACTIVE PRN (05:10)
[2019-08-31] MEDS ORDERED: CEFEPIME 2,000 MG in SYRINGE 7.5 ML IV STA (05:11)
--- NOTE | 2019-08-31 07:46 | CT Scan Report ---
ABDOMEN AND PELVIS CT WITH IV CONTRAST CT DOSE: 1513.41 mGy.cm HISTORY: nausea, epigastric pain TECHNIQUE: Multiaxial CT images of the abdomen and pelvis were performed following the use of intrave nous contrast. A dose lowering technique was utilized adhering to the principles of ALARA. COMPARISON STUDY: Abdomen and pelvis CT 04/26/2015. FINDINGS: The lung bases are clear. No pneumoperitoneum. No pneumatosis. Hepatic steatosis. Cholecyst ectomy. The spleen, adrenal glands, pancreas, and kidneys are within normal limits. No retroperitonea l lymphadenopathy. The bladder, uterus, bilateral adnexa are within normal limits. No pelvic free flu id. No bowel wall thickening or obstruction. The appendix is not identified and reportedly surgically absent. IMPRESSION: 1. No bowel wall thickening or obstruction. 2. Prior cholecystectomy and appendectomy. 3. Hepatic steatosis. Electronically signed by: Hansel Cabello M.D. 08/31/2019 7:45 AM
[2019-08-31 08:11] LABS: Basophils # (auto) 0.05 K/uL (0-0.2); Basophils % (auto) 0.6 %; Eosinophils # (auto) 0.36 K/uL (0-0.5); Eosinophils % (auto) 4.3 %; Hematocrit (blood only) 35.4 % (37-47); Hemoglobin 11.6 g/dL (12.0-16.0); Immature Granulocytes # (auto) 0.02 K/uL (0.00-0.02); Immature Granulocytes % (auto) 0.2 %; Lymphocytes % (auto) 38.3 %; Mean Corpuscular Hemoglobin 28.9 pg (25-34); Mean Corpuscular Hgb Conc 32.8 g/dL (32-36); Mean Corpuscular Volume 88.3 fL (80-100); Mean Platelet Volume 9.6 fL (7.4-10.4); Monocytes # (auto) 0.68 K/uL (0.11-0.59); Monocytes % (auto) 8.1 %; Neutrophils # (auto) 4.04 K/uL (1.4-6.5); Neutrophils % (auto) 48.5 %; Platelet Count 321 K/uL (130-400); RDW Coefficient of Variation 14.1 % (11.5-14.5); RDW Standard Deviation 45.5 fL (36.4-46.3); Red Blood Count 4.01 M/uL (4.2-5.4); White Blood Count 8.35 K/uL (4.8-10.8)
--- NOTE | 2019-08-31 08:17 | XRay Report ---
XR chest 1V portable HISTORY: cough COMPARISON: Chest 06/27/2019. FINDINGS: The lungs are clear. Cardiac silhouette is normal in size. No pleural effusions. No pneumot horax. IMPRESSION: No acute process. Electronically signed by: Hansel Cabello M.D. 08/31/2019 8:16 AM
[2019-08-31] MEDS: PROMETHAZINE HCL 12.5 MG in SODIUM CHLORIDE 0.9% 50 ML IV PRN ×2 (08:33→15:01)
[2019-08-31 08:44] LABS: BUN Creatinine Ratio 9.1 (10-20); Calcium 8.4 mg/dl (8.5-10.1); Creatinine Clr Calc Pharmacy 92.7 ml/min; Est GFR (African American) 91.3; Est GFR (Non-African American) 78.8; Magnesium 2.2 mg/dl (1.8-2.4); Potassium 3.2 mmol/L (3.5-5.1)
[2019-08-31] MEDS: AMLODIPINE BESYLATE 5 MG TAB PO SCH (09:35)
[2019-08-31] MEDS: ROSUVASTATIN CALCIUM 5 MG TAB PO SCH (09:35)
[2019-08-31] MEDS: ENOXAPARIN INJ 40 MG/0.4 ML SYR SQ SCH (09:41)
[2019-08-31] MEDS: FLUOXETINE HCL 20 MG CAP PO SCH (09:44)
--- NOTE | 2019-08-31 16:32 | Hospitalist Progress Note ---
Date of Service August 31, 2019 Assessment & Plan (1) Abdominal pain: Abdominal pain CT ABD: No bowel wall thickening or obstruction. Prior cholecystectomy and appendectomy. Hepatic steatosis. Likely due to Nausea, vomiting, diarrhea secondary to Trulicity Stool for C. difficile: Negative Normal lipase level Continue IV fluids, pain meds PRN Continue PPI Abnormal UA Patient states having dysuria Urinary culture pending Continue empiric IV antibiotics for now Hypokalemia Due to GI losses and home diuretics Replace electrolytes as needed Hypertension stable Continue home medication DM II Last Hb A1C: 8.7 Hold home p.o. meds Continue insulin therapy as needed Trulicity discontinued secondary to intolerance--plan to discontinue upon discharge as well Monitor blood glucose levels Anxiety/mood disorder Continue fluoxetine H/O Pseudotumor cerebri Topamax Rx which was stopped due to lethargy Follows with Dr. Villalpando as outpatient DVT Px: Lovenox SQ Code Status Full code Disposition Expect to discharge home when stable Subjective Patient is seen and examined at bedside Nausea, vomiting, diarrhea resolved Reports having mild dysuria and epigastric tenderness Denies any chest pain, shortness of breath, dizziness Family at bedside Offers no other complaints Review of Systems Review of Systems: All systems reviewed & are unremarkable except as noted in HPI & below Physical Exam Physical Exam: Physical Exam: Vitals signs as noted above General Appearance:Morbidly Obese, no apparent distress Head: normocephalic, Atraumatic Eyes: normal inspection, EOMI Neck: supple, Trachea midline Respiratory/Chest: Normal breath sounds, CTA Cardiovascular: S1, S2, No murmur Abdomen/GI:Soft, Mild tender, Bowel sounds present Extremities/Musculoskelatal:normal inspection, no edema Neurologic/Psych:AAOX3, grossly no focal neurological deficits Skin: normal color, warm Results & Data Vital Signs (Past 12 Hours) Vital Signs Temp Pulse Resp BP BP Pulse Ox 08/31/19 15:26 36.9 C 68 16 101/67 94 08/31/19 08:38 71 115/76 08/31/19 07:00 36.5 C 61 16 100/67 94 Laboratory Results Short CBC 08/30/19 08/31/19 Range/Units 22:32 07:26 WBC 10.49 8.35 (4.8-10.8) K/uL Hgb 13.3 11.6 L (12.0-16.0) g/dL Hct 39.1 35.4 L (37-47) % Plt Count 333 321 (130-400) K/uL BMP 08/30/19 08/31/19 08/31/19 22:32 00:28 07:26 Sodium 137 141 Potassium 3.1 L 3.2 L Chloride 102 108 H Carbon Dioxide 27 27 BUN 10 8 Creatinine 0.96 0.85 Glucose 197 H 124 H Calcium 9.8 8.4 L Cardiac Enzymes 08/30/19 Range/Units 22:32 Troponin I < 0.015 (0-0.045) ng/ml Liver Function 08/30/19 08/31/19 Range/Units 22:32 00:28 Total Bilirubin 0.4 (0.2-1) mg/dl AST 19 (15-37) U/L ALT 49 (12-78) U/L Alkaline Phosphatase 104 (45-117) U/L Albumin 3.9 (3.4-5.0) gm/dl Urine 08/30/19 Range/Units 21:50 Urine Color Yellow Urine Appearance Cloudy A (Clear) Urine pH 8.0 H (4.5-7.5) Ur Specific [place] 1.015 (1.000-1.030) Urine Protein Trace H (Negative) Urine Glucose (UA) Negative (Negative)
[2019-08-31] MEDS: CEFEPIME 2,000 MG in SYRINGE 7.5 ML IV SCH (18:05)
[2019-08-31] MEDS: FAMOTIDINE 10 MG TABLET PO SCH (22:02)
[2019-09-01] MEDS: PROMETHAZINE HCL 12.5 MG in SODIUM CHLORIDE 0.9% 50 ML IV PRN (00:48)
[2019-09-01] MEDS: CEFEPIME 2,000 MG in SYRINGE 7.5 ML IV SCH (05:51)
[2019-09-01 06:03] LABS: BUN Creatinine Ratio 10.5 (10-20); Calcium 8.5 mg/dl (8.5-10.1); Creatinine Clr Calc Pharmacy 88.5 ml/min; Est GFR (African American) 86.4; Est GFR (Non-African American) 74.5; Potassium 3.5 mmol/L (3.5-5.1)
[2019-09-01] MEDS ORDERED: PANTOprazole 40 MG TAB PO SCH (06:30)
[2019-09-01 07:16] VITALS: PULSE 61; TEMP 97.5; O2SAT 95
[2019-09-01] MEDS: INSULIN ASPART 100 UNITS/ML 3 ML PEN SC SCH (09:08)
[2019-09-01] MEDS: ROSUVASTATIN CALCIUM 5 MG TAB PO SCH (09:09)
[2019-09-01] MEDS: FAMOTIDINE 10 MG TABLET PO SCH (09:10)
[2019-09-01] MEDS: AMLODIPINE BESYLATE 5 MG TAB PO SCH (09:10)
[2019-09-01] MEDS: FLUOXETINE HCL 20 MG CAP PO SCH (09:11)
[2019-09-01] MEDS: ENOXAPARIN INJ 40 MG/0.4 ML SYR SQ SCH (09:11)
--- NOTE | 2019-09-01 11:33 | Hospitalist Progress Note ---
Date of Service September 01, 2019 Assessment & Plan (1) Abdominal pain: Abdominal pain--Resolved CT ABD: No bowel wall thickening or obstruction. Prior cholecystectomy and appendectomy. Hepatic steatosis. Likely due to Nausea, vomiting, diarrhea secondary to Trulicity Stool for C. difficile: Negative Normal lipase level Continue IV fluids, pain meds PRN Continue PPI Abnormal UA dysuria resolved Urinary culture: Negative Discontinue IV antibiotics Hypokalemia--Resolved Due to GI losses and home diuretics Replace electrolytes as needed Hypertension stable Continue home medication DM II Last Hb A1C: 8.7 Hold home p.o. meds Continue insulin therapy as needed Trulicity discontinued secondary to intolerance--plan to discontinue upon discharge as well Monitor blood glucose levels Advised to follow up with PCP for further med adjustment Anxiety/mood disorder Continue fluoxetine H/O Pseudotumor cerebri Topamax Rx which was stopped due to lethargy Follows with Dr. Villalpando as outpatient DVT Px: Lovenox SQ Code Status Full code Disposition Plan to discharge home today Subjective Patient is seen and examined at bedside Doing much better today Nausea, vomiting, abdominal pain, dysuria resolved Tolerating diet Diarrhea much improved Denies any chest pain, shortness of breath, dizziness Eager to get discharged Review of Systems Review of Systems: All systems reviewed & are unremarkable except as noted in HPI & below Physical Exam Physical Exam: Physical Exam: Vitals signs as noted above General Appearance:Morbidly Obese, no apparent distress Head: normocephalic, Atraumatic Eyes: normal inspection, EOMI Neck: supple, Trachea midline Respiratory/Chest: Normal breath sounds, CTA Cardiovascular: S1, S2, No murmur Abdomen/GI:Soft, Mild tender, Bowel sounds present Extremities/Musculoskelatal:normal inspection, no edema Neurologic/Psych:AAOX3, grossly no focal neurological deficits Skin: normal color, warm Results & Data Vital Signs (Past 12 Hours) Vital Signs Temp Pulse Resp BP Pulse Ox 09/01/19 07:15 36.4 C L 61 18 124/80 95 Laboratory Results [facility] 09/01/19 04:51 Sodium 143 Potassium 3.5 Chloride 113 H Carbon Dioxide 28 BUN 9 Creatinine 0.89 Glucose 121 H Calcium 8.5
--- NOTE | 2019-09-01 11:40 | Discharge Summary ---
Date of Service September 01, 2019 Admission HPI Per Admitting Provider History obtained from patient and records. Medical history significant for hypertension, DM2 insulin requiring, anxiety/mood disorder, history pseudotumor cerebri as per records. Recent confinement March 2017 for chest pain. ACS ruled out. 3 weeks ago patient started by PCP on weekly Trulicity shots for her diabetes mellitus. Patient has felt sick since starting new prescription. Nausea, severe indigestion symptoms. Achy upper abdominal pain going to the left side, nonbloody diarrhea, poor appetite. Feeling dizzy. Feeling tired. Patient denies chest pain, S OB. Patient seen at PCPs office on follow-up 4 days ago. Trulicity to be held. Outpatient lipase noted to be minimally elevated. Dysuria symptoms noted about 2 days ago. No fever, no chills, no hematuria. Patient went to ER for worsening symptoms. At the ER, IV ceftriaxone given for UTI. MEDICAL HISTORY: As above. SURGERIES: Gynecologic procedures, tonsillectomy, orthopedic procedures, cholecystostomy. Breast reduction FAMILY HISTORY: Breast cancer, heart disease. PERSONAL AND SOCIAL HISTORY: Past tobacco abuse. 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, managerial work Admission Exam Per Admitting Provider GENERAL: Slightly uncomfortable, obese, sad, no respiratory distress SKIN: Normal color, warm HEENT: [place] palpebral conjunctivae, no ptosis, dry buccal mucosa NECK : Supple, short neck, no tenderness CHEST : CTA, no tenderness HEART : RRR, no obvious murmurs ABDOMEN: Some distention, central abdominal tenderness EXTREMITIES : Minimal LE swelling, no LE tenderness, no other conspicuous deformities noted NEUROLOGIC : Coherent, no facial asymmetry, no other gross focality Principal Diagnosis Nausea, vomiting, diarrhea and abdominal pain Discharge Data Allergies Allergy/AdvReac Type Severity Reaction Status Date / Time oxycodone Allergy Mild ITCH Unverified 08/30/19 23:03 codeine Allergy Unknown RASH Verified 08/30/19 23:03 doxycycline Allergy Unknown HIVES Verified 08/30/19 23:03 morphine Allergy Unknown HIVES, N/V Verified 08/30/19 23:03 tetracycline Allergy Unknown DOXYCYCLINE Verified 08/30/19 23:03 dulaglutide [From Trulicity] AdvReac Mild diarrhea Verified 08/31/19 02:31 topiramate [From Topamax] AdvReac Mild lethargy Verified 08/31/19 02:31 Consultations 08/31/19 01:09 ED Decision to Admit Stat Procedures Performed CT ABD: No bowel wall thickening or obstruction. Prior cholecystectomy and appendectomy. Hepatic steatosis. Ordered Studies 08/30/19 21:55 CT abd pelvis IV con only Urgent Hospital Course (1) Abdominal pain: Abdominal pain--Resolved CT ABD: No bowel wall thickening or obstruction. Prior cholecystectomy and appendectomy. Hepatic steatosis. Likely due to Nausea, vomiting, diarrhea secondary to Trulicity Stool for C. difficile: Negative Normal lipase level Continue IV fluids, pain meds PRN Continue PPI Abnormal UA dysuria resolved Urinary culture: Negative Discontinue IV antibiotics Hypokalemia--Resolved Due to GI losses and home diuretics Replace electrolytes as needed Hypertension stable Continue home medication DM II Last Hb A1C: 8.7 Hold home p.o. meds Continue insulin therapy as needed Trulicity discontinued secondary to intolerance--plan to discontinue upon discharge as well Monitor blood glucose levels Advised to follow up with PCP for further med adjustment Anxiety/mood disorder Continue fluoxetine H/O Pseudotumor cerebri Topamax Rx which was stopped due to lethargy Follows with Dr. Villalpando as outpatient DVT Px: Lovenox SQ Code Status Full code Disposition Plan to discharge home today Total Time Total Time Spent Total Time Spent (In Minutes): 28 minutes Total Time Includes: Examination of the Patient, Discharge Planning, Medication Reconciliation and Other Discharge Plan Discharge Items Patient Disposition: Home - Self-Care Reason For Visit: STOMACH PAIN, NAUSEA Discharge Diagnosis: Nausea, vomiting, diarrhea and abdominal pain Activity: Resume your previous activity Exercise/Sports: Gradually increase as tolerated Non-emergency contact: Primary Care Provider Call non-emergency contact if: you have any medication questions, your symptoms worsen, your pain is not controlled, your pain is worsening, your pain is unusual for you, your pain is concerning for you and you have a fever Follow-up/Referrals: Ginna Vincent DO [Primary Care Provider] - Diet: Carb Consistent or DM2 and Heart Healthy Addtl Attending Provider Instructions: Follow up with your PCP on September 03, 2019 at 10:30AM Discuss with your physician for medication changes for your diabetes management as advised Your Trulicity is discontinued as your are intolerant to the medication Seek immediate medical attention if your symptoms reoccur or worsen Pending Studies at Discharge: No Stand-Alone Forms: Call Back Authorization, My [facility], Smoking Cessation Medications and DC Order Prescriptions: Continued amlodipine 2.5 mg tablet 2.5 mg PO DAILY RF: 0 pantoprazole 40 mg tablet,delayed release (DR/EC) 40 mg PO DAILYBB RF: 0 hydrochlorothiazide 25 mg tablet 25 mg PO DAILY RF: 0 losartan 100 mg tablet 100 mg PO DAILY RF: 0 rosuvastatin 5 mg tablet 5 mg PO DAILY RF: 0 potassium chloride 10 mEq capsule, extended release 10 meq PO DIRECTED RF: 0 metformin 500 mg tablet extended release 24 hr 2,000 mg PO DAILY RF: 0 Januvia 100 mg tablet 100 mg PO DAILY RF: 0 fluoxetine 40 mg capsule 40 mg PO DIRECTED RF: 0 fluoxetine 20 mg capsule 20 mg PO DIRECTED RF: 0 Discharge Orders: Discharge Order (Routine); Ordered 09/01/19 Ordered By: Suraj Peacock Admission Data Admit Date/Time: 08/31/19 02:38 Attending Provider: Suraj Peacock Admit Provider: Mahamed Cook Primary Care Provider: Ginna Vincent Other Providers: Mahamed Cook Other Interventions: Discharge Summary Assessment (RN) Last Done: 09/01/19 11:49 DC Date/Time DO NOT enter until pt leaves facility: 09/01/19 12:05
[2019-09-01 11:50] VITALS: BP 100/67
== END 2019-09-01 12:05 | disposition home or self-care (01) ==
LOC: ED 21:38 → 3W 21:38